=== PATIENT | female | born 1960 | race Caucasian/White ===

== ENCOUNTER → 2017-03-11 | Outpatient (CLI) | payer BC | LOC: MC.RAD 15:36 | DX: Z12.31 Encounter for screening mammogram for malignant neoplasm of breast (principal) ==

== ENCOUNTER → 2018-06-22 | Outpatient (CLI) | payer BC | LOC: MC.RAD 14:37 | DX: Z12.31 Encounter for screening mammogram for malignant neoplasm of breast (principal) ==

== ENCOUNTER → 2019-06-25 | Outpatient (CLI) | payer BC | LOC: MC.RAD 08:30 | DX: Z12.31 Encounter for screening mammogram for malignant neoplasm of breast (principal) ==

== ENCOUNTER → 2020-06-26 | Outpatient (CLI) | payer BC | LOC: MC.RAD 09:00 | DX: Z12.31 Encounter for screening mammogram for malignant neoplasm of breast (principal) ==

== ENCOUNTER 2021-09-27 07:19 | Day surgery (SDC) | payer BC ==
[~2021-09-27] VITALS: Ht 165.1 cm; Wt 70.0 kg
[2021-09-27] MEDS ORDERED: LIPITOR20 MG PO (07:40)
[2021-09-27] MEDS ORDERED: GLUCOPHAGE XR500 M1 PO (07:41)
[2021-09-27] MEDS ORDERED: PRILOSEC 20MG20 MG PO (07:41)
[2021-09-27 08:15] VITALS: BP 110/90; PULSE 86; TEMP 99.1
[2021-09-27] MEDS ORDERED: DIOVAN 160MG160 MG PO (08:45)
[2021-09-27] MEDS ORDERED: TRULICITY1.5 MG/0.5 SQ (08:46)
[2021-09-27 09:20] VITALS: BP 127/87; PULSE 75; TEMP 97
--- NOTE | 2021-09-27 09:20 | NUR ---
pt to [facility] via cart from endo lab, walked to chair, in room. in earlier to visit with after procedure. pt takes tea and water, has no c/o, call light in reach
[2021-09-27 09:35] VITALS: BP 130/89; PULSE 69
[2021-09-27 09:50] VITALS: BP 119/95; PULSE 69
--- NOTE | 2021-09-27 09:50 | NUR ---
reviewed discharge inst. with pt on handouts, moderate sedation precautions and followup with verbal understanding. int d'cd intact. pt up in room dressed, gait steady, discharged via w/c to car at 1005
== END 2021-09-27 10:05 | disposition home or self-care (01) ==
LOC: SDCO 07:19
DX: Z12.11 Encounter for screening for malignant neoplasm of colon (principal); K57.30 Diverticulosis of large intestine without perforation or abscess without bleeding; K64.0 First degree hemorrhoids; Z99.89 Dependence on other enabling machines and devices; G47.33 Obstructive sleep apnea (adult) (pediatric)
CPT/HCPCS: J2704; J3010; J7120

== ENCOUNTER → 2021-11-29 | Outpatient (CLI) | payer BC ==
[~2021-11-29] MED LIST: DIOVAN 160MG160 MG PO; GLUCOPHAGE XR500 M1 PO; LIPITOR20 MG PO; PRILOSEC 20MG20 MG PO; TRULICITY1.5 MG/0.5 SQ
== END ==
LOC: MC.RAD 07:30
DX: Z12.31 Encounter for screening mammogram for malignant neoplasm of breast (principal)

== ENCOUNTER → 2022-03-06 | Outpatient (CLI) | payer BC | LOC: DIA.ED 08:25 | DX: E11.9 Type 2 diabetes mellitus without complications (principal); Z79.84 Long term (current) use of oral hypoglycemic drugs; I10 Essential (primary) hypertension | CPT/HCPCS: G0108 ==

== ENCOUNTER → 2024-01-15 | Outpatient (CLI) | payer BC | LOC: MC.RAD 09:51 | DX: Z12.31 Encounter for screening mammogram for malignant neoplasm of breast (principal) ==